=== PATIENT | female | born 1970 | race Two or more races ===

== ENCOUNTER → 2024-08-24 | Outpatient (CLI) | payer MEDICAID, SELFPAY ==
--- NOTE | 2024-08-24 08:00 | XR_ITS ---
Examination: CT maxillofacial, without intravenous contrast. 2-D sagittal reconstructions. 3-D reconstructions. Date and time of exam:August 24, 2024 0752 hours INDICATIONS: Sinus pressure and pain months CTDI: vol (mGy):7.07 DLP: (mGycm):107 Technique: Multiple axial images of maxillofacial region, 3.0 mm slice thickness. 2-D sagittal and coronal reconstructions. 3-D reconstructions. Low dose protocols were performed. One or more of the following dose reduction techniques were used; automated exposure control, adjustment of the mA and/or KV according to patient size, use of iterative reconstruction technique. Findings: Significant mucosal disease in the frontal air cells Mild mucosal thickening ethmoid air cells Maxillary antra are clear Fluid in the left sphenoid air cells IMPRESSION: Chronic pansinusitis Acute sphenoid frontal sinusitis.
== END | disposition home or self-care (01) ==
LOC: CCTX 07:41
PROVIDERS: PCP Specialist; Referring Provider Specialist; Visit Provider Specialist
DX: J32.9 Chronic sinusitis, unspecified (principal); J01.10 Acute frontal sinusitis, unspecified
CPT/HCPCS: 70486

== ENCOUNTER → 2024-11-03 | Outpatient (CLI) | payer MEDICAID, SELFPAY ==
--- NOTE | 2024-11-03 11:00 | XR_ITS ---
Examination: Breast ultrasound, unilateral, left complete Date and time of exam: November 03, 2024 1113 hours INDICATIONS: Left breast sonogram February 25, 2024 4:00 nodule 7 mm 6:00 nodule 8 mm 11:00 nodule 7 mm Technique: Real-time kenny scale ultrasonographic imaging performed left breast including all 4 quadrants as well as nipple retroareolar and axillary region. Findings: Sonographic images left breast Benign cyst 4:00 nodule circumscribed 5 x 5 mm 11:00 nodule circumscribed 8 x 8 mm IMPRESSION: BI-RADS Category 2: Benign findings
--- NOTE | 2024-11-03 11:30 | XR_ITS ---
Examination: Diagnostic digital mammography, bilateral Computer aided detection 3-D breast Tomosynthesis, bilateral Date and time of exam: November 03, 2024 1124 hours INDICATIONS: Mammogram 01/09/2023 20 mm circumscribed mass upper outer left breast, 7 mm circumscribed round mass upper outer right breast Technique: Nonmagnified MLO, CC views of the breasts to been obtained, reconstructed from 3-D Tomosynthesis images. R2 computer aided detection program utilized for evaluation of suspicious masses and/or abnormal calcifications. 3-D Tomosynthesis images obtained. Findings: The breasts are heterogeneously dense, which may obscure small masses Circumscribed nodule 10:00 position right breast 10 mm corresponding to cyst described on ultrasound February 25, 2024 6 mm circumscribed nodule outer left breast probably benign Impression: BI-RADS Category 3: Probably benign findings One additional 6 month left mammogram follow-up needed to document stability of 6 mm circumscribed nodule outer left breast
== END | disposition home or self-care (01) ==
PROVIDERS: PCP Specialist; Referring Provider Specialist; Visit Provider Specialist
DX: R92.333 Mammographic heterogeneous density, bilateral breasts (principal); N63.20 Unspecified lump in the left breast, unspecified quadrant; N60.01 Solitary cyst of right breast
CPT/HCPCS: 76641; 77062; 77066; G0279